=== PATIENT | male | born 1965 | race Caucasian/White ===

== ENCOUNTER 2018-08-10 10:17 | Outpatient (CLI) | payer MEDICARE | END 2018-08-10 23:59 | disposition home or self-care (01) | LOC: RAD 10:17 | PROVIDERS: ATTEND Psychiatry & Neurology Neurology | DX: G40.909 Epilepsy, unspecified, not intractable, without status epilepticus (principal); G45.0 Vertebro-basilar artery syndrome | CPT/HCPCS: 70551; 95816 ==

== ENCOUNTER 2018-10-11 12:51 | Emergency (ER) | payer MEDICARE ==
[~2018-10-11] VITALS: Ht 182.9 cm; Wt 90.9 kg
[2018-10-11 13:09] VITALS: BP 166/112
[2018-10-11] MEDS ORDERED: HYDR-4353 PO (14:10)
[2018-10-11] MEDS ORDERED: morphine 4 MG/ML inj SYRINge IM ONE (14:10)
[2018-10-11] MEDS ORDERED: ondansetron 4mg rapidly disintigrating tab PO ONE (14:10)
== END 2018-10-11 17:52 | disposition home or self-care (01) ==
LOC: ER 12:52
DX: S42.252A Displaced fracture of greater tuberosity of left humerus, initial encounter for closed fracture (principal); Z98.890 Other specified postprocedural states; W18.49XA Other slipping, tripping and stumbling without falling, initial encounter; Y93.89 Activity, other specified; Y92.89 Other specified places as the place of occurrence of the external cause; Y99.9 Unspecified external cause status
CPT/HCPCS: 73030; 73080; 96372; 99283; J2270

== ENCOUNTER 2018-12-19 12:50 | Emergency (ER) | payer MEDICARE, MEDICAID ==
[~2018-12-19] VITALS: Ht 182.9 cm; Wt 81.0 kg
[2018-12-19 13:44] VITALS: BP 141/92
== END 2018-12-19 14:08 | disposition home or self-care (01) ==
LOC: ER 12:50
DX: G40.909 Epilepsy, unspecified, not intractable, without status epilepticus (principal); I10 Essential (primary) hypertension; F12.90 Cannabis use, unspecified, uncomplicated; Z98.890 Other specified postprocedural states
CPT/HCPCS: 99281

== ENCOUNTER 2018-12-23 11:30 | Outpatient (CLI) | payer MEDICARE, MEDICAID | END 2018-12-23 23:59 | disposition home or self-care (01) | LOC: RAD 11:30 | PROVIDERS: ATTEND Psychiatry & Neurology Neurology | DX: R56.9 Unspecified convulsions (principal) | CPT/HCPCS: 95816 ==

== ENCOUNTER 2019-01-02 17:16 | Inpatient (IN) | payer MEDICARE, MEDICAID | END 2019-01-05 09:33 | disposition left against medical advice (07) | LOC: ER 17:16 → ED HOLD 22:47 → PCU 3S 01-03 17:00 | DX: T42.8X1A Poisoning by antiparkinsonism drugs and other central muscle-tone depressants, accidental (unintentional), initial encounter (principal); G92 Toxic encephalopathy; G40.909 Epilepsy, unspecified, not intractable, without status epilepticus ==

== ENCOUNTER 2020-04-30 14:51 | Emergency (ER) | payer MEDICAID, MEDICARE ==
[~2020-04-30] VITALS: Ht 182.9 cm; Wt 95.0 kg
[~2020-04-30 14:51] MED LIST: BACL20TA7 PO; CARB200T40 PO; DIAZ5TAB PO; LEVE750T PO; OMEP-50 PO; ROPI1TAB6 PO
[2020-04-30] MEDS ORDERED: diazepam 5mg tablet PO ONE ×2 (15:05→16:55)
[2020-04-30 15:27] LABS: CLARITY,URINE CLEAR (Clear); COLOR,URINE STRAW (Yellow); GLUCOSE, URINE NEGATIVE (Neg); KETONES,URINE NEGATIVE (Neg); LEUKOCYTE ESTERASE ,URINE NEGATIVE (Neg); NITRITES, URINE NEGATIVE (Neg); OCCULT BLOOD,URINE LARGE (Neg); PH,URINE 6.5 (4.8-8.0); PROTEIN,URINE NEGATIVE (Neg)
[2020-04-30 15:28] LABS: UA COLLECTION TYPE VOIDED
[2020-04-30 15:33] LABS: MUCUS STRANDS FEW /LPF (Neg); SQUAMOUS EPITHELIAL CELL,UR FEW /LPF (FEW); TRANSITIONAL EPI CELLS,URINE FEW /HPF
[2020-04-30 15:35] LABS: BACTERIA,URINE NONE SEEN /HPF (Neg); RBC,URINE 50-100 /HPF (0-2); WBC,URINE 0-4 /HPF (0-4)
[2020-04-30 15:38] LABS: URINE AMPHETAMINE SCREEN NEGATIVE (Neg); URINE BARBITUATE SCREEN NEGATIVE (Neg); URINE BENZODIAZEPINES SCREEN POSITIVE (Neg); URINE CANNABINOID SCREEN POSITIVE (Neg); URINE COCAINE SCREEN NEGATIVE (Neg); URINE METHADONE SCREEN NEGATIVE (Neg); URINE OPIATE SCREEN NEGATIVE (Neg); URINE PHENCYCLIDINE SCREEN NEGATIVE (Neg)
[2020-04-30] MEDS ORDERED: LISI-642 PO (15:43)
[2020-04-30] MEDS ORDERED: FLUTICASONE PRO NAS (15:43)
[2020-04-30] MEDS ORDERED: VAL5T PO (15:43)
--- NOTE | 2020-04-30 16:10 | NUR ---
Patient states he is feeling suicidal and has felt suicidal for a long time. Patient states he lost his support and great friend who was his mom May 2019.
--- NOTE | 2020-04-30 16:15 | NUR ---
Patient states he no longer has a neurologist but has large bottles of Kepra and he breaks a pill in half and takes it when he feels he needs to. Patient does not know the dose and patient has not had it prescribed in a long time but still has a lot of the medication. Patient states his last seizure was 3 weeks ago.
--- NOTE | 2020-04-30 16:20 | NUR ---
RN received a call from [facility] female staff who wanted to give RN the back story of the patient. [facility] stated that patient was in [facility] last week and got agitated and threatened to shoot the entire staff. [facility] also stated he threatened the Staff at [facility] with the same threat. RN spoke with [facility] It Audit Manager Calista about reporting a [place] [employer]. Calista stated that the threat had to be more specific and the staff at [facility] and [facility] were aware since the made the threat to them.
[2020-04-30 16:24] LABS: BASOPHILS # (AUTO) 0.1 X10'3 (0-0.2); BASOPHILS % (AUTO) 0.7 % (0-1); EOSINOPHILS # (AUTO) 0.1 X10'3 (0-0.9); EOSINOPHILS % (AUTO) 0.8 % (0-6); HEMOGLOBIN 13.6 g/dl (14.0-17.9); LYMPHOCYTES # (AUTO) 1.6 X10'3 (1.1-4.8); LYMPHOCYTES % (AUTO) 17.1 % (21-51); MEAN CORPUSCULAR HEMOGLOBIN 32.6 PG (27.0-31.0); MEAN CORPUSCULAR HGB CONC 34.1 g/dL (33.0-36.5); MEAN CORPUSCULAR VOLUME 95.7 FL (78-98); MEAN PLATELET VOLUME 7.7 FL (7.4-10.4); MONOCYTES # (AUTO) 0.6 X10'3 (0-0.9); MONOCYTES % (AUTO) 6.2 % (2-12); NEUTROPHILS # (AUTO) 7.2 X10'3 (1.8-7.7); NEUTROPHILS % (AUTO) 75.2 % (42-75); PLATELET COUNT 251 X10'3 (140-440); RED BLOOD COUNT 4.18 X10'6 (4.70-6.10); RED CELL DISTRIBUTION WIDTH 14.6 % (11.5-14.5); WHITE BLOOD COUNT 9.6 X10'3 (4.5-11.0)
[2020-04-30 16:35] LABS: ALANINE AMINOTRANSFERASE 19 U/L (12-78); ALBUMIN 3.6 G/DL (3.4-5.0); ALBUMIN/GLOBULIN RATIO 1.1 (1.1-1.5); ALKALINE PHOSPHATASE 161 IU/L (46-116); ANION GAP 2 (8-16); ASPARTATE AMINO TRANSFERASE 18 U/L (10-37); BILIRUBIN,TOTAL 0.7 MG/DL (0.1-1.0); BLOOD UREA NITROGEN 9 MG/DL (7-18); CALCIUM 8.2 MG/DL (8.5-10.1); CHLORIDE 107 MMOL/L (99-107); CREATININE 1.29 MG/DL (0.60-1.10); GLUCOSE 102 MG/DL (70-104); POTASSIUM 3.2 MMOL/L (3.5-5.1); SODIUM 142 MMOL/L (135-145); TOTAL CARBON DIOXIDE 32.8 MMOL/L (24-32); TOTAL PROTEIN 6.8 G/DL (6.4-8.2); eGFR 58 ML/MIN
[2020-04-30 16:46] LABS: ETHANOL < 0.010 GM/DL (0.0-0.010)
--- NOTE | 2020-04-30 17:00 | NUR ---
FAXED PACKET TO [facility]
[2020-04-30] MEDS ORDERED: FLUT16SP18 BOTHNARES (17:17)
--- NOTE | 2020-04-30 17:25 | NUR ---
1634 Patient got upset when he found out his belongings were being inventoried without him watching. Tech explained she would have him sign it when she was done. Patient calmed down but got very upset when DERIK Ziegler told patient that he could have someone cigar packer and picker his marijuana or we would have to destroy it. Patient went into a rage. Patient was given a phone but was so angry he could not work it. Security was called as patient was calling staff "brian galeas". 1649 NELIDA Valera came to speak to patient and calmed him down. Patient was given 5 mg x 2. But was still insulting staff. Patient did make a coment about "making this place a [place]." Patient sitting in bed, calm at the moment. Continue to monitor.
--- NOTE | 2020-04-30 18:46 | NUR ---
Report taken from DERIK Perez. This job specification writer observed the patient yelling an DERIK Perez and female tech also. Patient threatens to throw the phone. He calls the female staff "[place]!" The patient had an outside caller, her name is Yolanda Terriedeneen. Yolanda is a retired RN. Patient spoke with Yolanda on the phone until contact was lost. With patients permission this job specification writer called Yolanda back at [phone]. With patients permission his basic status was shared with Yolanda. Ms Duff advises that patients friend Percy will be getting off work at 1900 hours to pick his cell phone up from security. With patients permission security personnel will also give patients marijuana to patients antonio Greer. This is in lieu of security having to destroy the marijuana contriband. Patient agrees to this. The patient begins to calm somewhat. This job specification writer is working on a med reconciliation with patients assistance. Patient is being closely observed for patient and staff safety.
--- NOTE | 2020-04-30 18:59 | NUR ---
Patients significant other is here, his name is Percy. Per the patient he would like all of his belongings, including his computer, wallet, etc to go to Percy's possetion. Percy Pb's phone number is [phone].
--- NOTE | 2020-04-30 19:04 | NUR ---
MILVIA arredondo is reviewing patients inventory with patient. Percy is taking possetion of of patients property. Anand from security observed inventory transaction. Patient did sign the inventory list.
--- NOTE | 2020-04-30 19:06 | NUR ---
Patient did make one threatening statement to this nurse concerning the day staff. Patient stated "If I was going to , I was going to take them out with me." The patient has calmed since making that statement. His friend Percy visited for a short time, that visit was calm and beneficial. Patient has been given warm blankets, he is resting quietly in a mid fowlers position. Patient is in direct view from the nursing station. Patients med rec had been completed by the day shift RN Ana.
--- NOTE | 2020-04-30 19:12 | NUR ---
Yolanda Duff, patients friend. [phone] Aok to give updates on his condition to her. Verbal consent from the patient.
--- NOTE | 2020-04-30 20:29 | NUR ---
Patient has calmed. He is cooperative and resting. In view from nursing station.
[2020-04-30] MEDS: ROPINIRole 1mg tablet PO SCH (20:46)
[2020-04-30] MEDS: diazepam 5mg tablet PO SCH (20:48)
--- NOTE | 2020-04-30 21:10 | NUR ---
Patient is sleeping on his right side. No distress. In view from the nursing station.
--- NOTE | 2020-04-30 22:33 | NUR ---
Patient is sleeping on his right side. He has self repositioned.
--- NOTE | 2020-05-01 00:27 | NUR ---
Patient is sleeping on his left side. No distress.
--- NOTE | 2020-05-01 02:00 | NUR ---
Patient sleeping on his left side.
--- NOTE | 2020-05-01 05:53 | NUR ---
This patient is sleeping on his right side.
--- NOTE | 2020-05-01 06:52 | NUR ---
sleeping quietly in bed, no s/sx of distress.
[2020-05-01] MEDS ORDERED: lisinopril 5mg tablet PO SCH (08:00)
[2020-05-01] MEDS ORDERED: fluticasone nasal spray 16GM bottle NS SCH (08:00)
--- NOTE | 2020-05-01 08:07 | NUR ---
pt awoke and up to the bathroom. now sitting up in bed calmly eating breakfast. Addendum: 05/01/20 at 0845 by LYN pt states he doesn't need to take his meds.
--- NOTE | 2020-05-01 08:43 | NUR ---
[facility] at bedside talking to pt. pt speaking harshly and rude to MH rep. speaking in a condisending tone.
--- NOTE | 2020-05-01 09:43 | NUR ---
resting quietly in bed.
[2020-05-01] MEDS: diazepam 5mg tablet PO SCH ×2 (10:28→14:30)
[2020-05-01] MEDS ORDERED: diphenhydrAMINE 50 mg/ml inj IM ONE (10:40)
[2020-05-01] MEDS ORDERED: LORazepam 2 mg/ml vial IM ONE (10:40)
[2020-05-01] MEDS ORDERED: haloperidol lactate 5mg/ml inj IM ONE ×2 (10:40→19:15)
--- NOTE | 2020-05-01 10:46 | NUR ---
PATIENT THREW HIS GLASSES AND BROKE THEM
--- NOTE | 2020-05-01 11:16 | NUR ---
asked pt again if he would like to take his AM meds, he said he would. checked his BP before giving his Lisinopril. pt watching tech talk to another RN and then became beligerant towards tech accusing her of gossiping and talking bad about another pt when she wasn't and replaying events of yesterday. pt angry and accusatory, yelling, and calling tech names. security at bedside. MD gomez and B52 ordered and given. pt continuing to call staff names, remains sitting in bed. states he wants to telling the security guards to "go ahead and kill me, i don't care...go ahead and choke me". pt took off his shirt stating he was hot. staff told pt he needs to waer a shirt or a gown. pt remained angry and cussing at staff. pt now sitting quietly in bed.
--- NOTE | 2020-05-01 12:40 | NUR ---
pt changed his bed sheets because he urinated on them, now wearing a gown. pt has been calm and quiet sitting/laying in bed since his B52. Now slowly pacing in his room. appears to be much more calm.
--- NOTE | 2020-05-01 14:00 | NUR ---
pt has been calm throughout the afternoon. nursing staff chatted with pt about his life. sounds like pt has had a lot of pain and stress in his life causing his current mental state. pt states he just wants to feel better. pt appears to be in alot better mental state than he was earlier. he is alert, oriented, and calm, having a meaningful conversation. pt apologized for his actions earlier stating he just has a lot of pain he needs to work through.
[2020-05-01] MEDS: ROPINIRole 1mg tablet PO SCH (15:17)
--- NOTE | 2020-05-01 15:21 | NUR ---
pt c/o restless leg syndrome requesting to take his Requip early. ok with taking med early. Med administered. pt calm and cooperative. resting in bed and then up and walking d/t restless legs.
--- NOTE | 2020-05-01 16:40 | NUR ---
pt has been calm for the past several hours and pleasant. internet security specialist and RN having a calm conversation and pt interjected into conversation and accused internet security specialist of not knowing what he was talking about and pt got agitated. pt up and walking around the unit stating restlessness and agitation. stating he wants to smash something. asking when he can leave and what his plan of care is. asks RN what would happen if he poured water on the computers and smashed things. RN stated he would get arrested. pt said "that's fine. this place is [facility] anyway". pt states he smashes stuff at home when he's restless and "it would be real fun to smash stuff here". RN educated pt on the repercusions of his potential actions, pt doesn't care. a couple minutes later pt walks to his bed, sits and chats with staff about his life and then lays down to rest. security stated he was watching the camera to monitor pts actions incase of need for intervention.
--- NOTE | 2020-05-01 17:00 | NUR ---
called [facility] office to get update on pts plan of care and they said he was accepted to [facility]. called [facility] and they stated they would come get pt at shift change. pt anxious and agitated stating he wants to warehouse order picker something and smash it. security rounding in overflow as backup if needed. pt aware he will go to [facility] soon, states his frustration but is willing to wait. went back to bed and sat down.
[2020-05-01 18:31] VITALS: BP 163/90
[2020-05-01] MEDS ORDERED: diphenhydrAMINE 25mg capsule PO ONE (19:15)
[2020-05-01] MEDS ORDERED: LORazepam 1 MG tablet PO ONE (19:15)
--- NOTE | 2020-05-01 19:20 | NUR ---
CHARGE NURSE FROM [facility] MAGDY TP CPME AND TALK TO THE PATIENTABOUT WHY HE ISNT UP STAIRS AT THE MOMENT . SPOKE WITH DR PRIETO ABOUT PT HOSTILE BEHVAIOT THREATS TO HARM STAFF AND LEAVE OVER FLOW UNIT . ORDER GIVEN TO MEDICATE PATIENT.
--- NOTE | 2020-05-01 19:26 | NUR ---
PT MEDICATED WITH 10 MG HALDOL IM 2 MG OF ATIVAN PO AND 50 MG OF BENADRYL PO . PT WILLING TOOK THE PO MEDICATION AND IM INJECTION BUT VERBALLY ATTACKED ALL NURSING STAFF , SECURITY , ADN TECHS
--- NOTE | 2020-05-01 19:40 | NUR ---
Pt gets up and out of bed to bathroom . VERBALLY SCARCASTIC AND HOSTILE WHEN SPOKEN TO . PT WHEN FINISHED USING THE BR WALKED BACK TO THE BEDSIDE LOOKED AROUND A PROCEEDED TO PULL THE CURTAIN OFF THE TRACK , SECURITY WAS CALLED, THE PATIENT THEN PUSHED THE ASSISTANT STORE LEADER WHEN HE TRIED REDIRECTED DROM DEFACING PROPERTY , PT WAS YELLING AND VERBALLY ABSUIVE TO BOTH THE TECH , SECURITY , AND THIS RECORDER. PT THREATENED TO TRY AND LEAVE IF HE ISNT BROUGHT UPSTAIRS , PT WAS ABLE TO GET HIMSELF BACK TO HIS BED BUT IS SITTING UPRIGHT WITH A BLANK STARE.
[2020-05-04] MEDS ORDERED: LURA20TA PO (11:22)
[2020-05-04] MEDS ORDERED: TRAZ-251 PO (11:22)
== END 2020-05-01 22:50 ==
LOC: ER 14:51
DX: F32.9 Major depressive disorder, single episode, unspecified (principal); R45.851 Suicidal ideations; R45.1 Restlessness and agitation; I10 Essential (primary) hypertension; F41.9 Anxiety disorder, unspecified; F12.90 Cannabis use, unspecified, uncomplicated; Z86.69 Personal history of other diseases of the nervous system and sense organs; Z79.899 Other long term (current) drug therapy
CPT/HCPCS: 96372; 99285; J1200; J1630; J2060; Q0163; 36415; 80053; 80305; 80320; 81001; 84443; 85025

== ENCOUNTER 2020-06-29 17:54 | Observation (INO) | payer MEDICARE ==
[~2020-06-29] VITALS: Ht 182.9 cm; Wt 95.0 kg
[~2020-06-29 17:54] MED LIST changes: -BACL20TA7 PO; -CARB200T40 PO; -DIAZ5TAB PO; +FLUT16SP28 BOTHNARES; -LEVE750T PO; +LISI-642 PO; +LURA20TA PO; -OMEP-50 PO; +TRAZ-251 PO; +VAL5T PO
--- NOTE | 2020-06-29 19:28 | NUR ---
pt going out to CT
[2020-06-29 19:40] LABS: BASOPHILS # (AUTO) 0.1 X10'3 (0-0.2); BASOPHILS % (AUTO) 1.1 % (0-1); EOSINOPHILS # (AUTO) 0.1 X10'3 (0-0.9); EOSINOPHILS % (AUTO) 1.3 % (0-6); HEMATOCRIT 41.1 % (42.0-52.0); LYMPHOCYTES # (AUTO) 1.9 X10'3 (1.1-4.8); LYMPHOCYTES % (AUTO) 21.3 % (21-51); MEAN CORPUSCULAR HEMOGLOBIN 32.1 PG (27.0-31.0); MEAN CORPUSCULAR HGB CONC 34.2 g/dL (33.0-36.5); MEAN CORPUSCULAR VOLUME 94.1 FL (78-98); MEAN PLATELET VOLUME 7.9 FL (7.4-10.4); MONOCYTES # (AUTO) 0.6 X10'3 (0-0.9); MONOCYTES % (AUTO) 6.3 % (2-12); NEUTROPHILS # (AUTO) 6.2 X10'3 (1.8-7.7); PLATELET COUNT 210 X10'3 (140-440); RED BLOOD COUNT 4.37 X10'6 (4.70-6.10); RED CELL DISTRIBUTION WIDTH 14.2 % (11.5-14.5); WHITE BLOOD COUNT 8.9 X10'3 (4.5-11.0)
--- NOTE | 2020-06-29 19:52 | NUR ---
BREAKING PRIMARY RN- WILL CONT TO MONITOR.
[2020-06-29 20:00] LABS: ALANINE AMINOTRANSFERASE 16 U/L (12-78); ALBUMIN 3.5 G/DL (3.4-5.0); ALBUMIN/GLOBULIN RATIO 1.1 (1.1-1.5); ALKALINE PHOSPHATASE 141 IU/L (46-116); ANION GAP 5 (8-16); ASPARTATE AMINO TRANSFERASE 17 U/L (10-37); BILIRUBIN,TOTAL 0.3 MG/DL (0.1-1.0); BLOOD UREA NITROGEN 13 MG/DL (7-18); BUN/CREATININE RATIO 11.3 (5.4-32.0); CALCIUM 8.2 MG/DL (8.5-10.1); CHLORIDE 104 MMOL/L (99-107); CREATININE 1.15 MG/DL (0.60-1.10); GLUCOSE 89 MG/DL (70-104); POTASSIUM 3.3 MMOL/L (3.5-5.1); SODIUM 142 MMOL/L (135-145); TOTAL CARBON DIOXIDE 32.9 MMOL/L (24-32); TOTAL PROTEIN 6.8 G/DL (6.4-8.2); eGFR 66 ML/MIN
[2020-06-29] MEDS ORDERED: cloNIDine 0.1 mg tablet PO ONE (20:05)
[2020-06-29 20:06] LABS: MAGNESIUM 1.8 MG/DL (1.5-2.4)
--- NOTE | 2020-06-29 20:52 | NUR ---
PA MADE AWARE OF BP
[2020-06-29] MEDS ORDERED: ondansetron/PF 4mg/2ml inj IV PRN (21:50)
[2020-06-29] MEDS: amLODIPine 5mg tablet PO SCH (22:17)
--- NOTE | 2020-06-29 22:42 | NUR ---
He is eating some food.
[2020-06-30] VITALS (8 sets, daily range): BP systolic 145–177; BP diastolic 97–114
[2020-06-30 02:33] LABS: ALBUMIN 3.1 G/DL (3.4-5.0); ANION GAP 5 (8-16); BLOOD UREA NITROGEN 14 MG/DL (7-18); BUN/CREATININE RATIO 12.5 (5.4-32.0); CALCIUM 7.9 MG/DL (8.5-10.1); CHLORIDE 106 MMOL/L (99-107); CREATININE 1.12 MG/DL (0.60-1.10); GLUCOSE 95 MG/DL (70-104); SODIUM 142 MMOL/L (135-145); TOTAL CARBON DIOXIDE 30.8 MMOL/L (24-32); eGFR 68 ML/MIN
[2020-06-30] MEDS ORDERED: magnesium Cl slow-release 64mg tablet PO PRN (02:45)
[2020-06-30] MEDS ORDERED: potassium Cl 20 mEq SR tablet PO PRN (02:45)
[2020-06-30] MEDS ORDERED: magnesium 4gm in 100ml NS 100 ML IV PRN (02:45)
[2020-06-30] MEDS ORDERED: potassium CL 10mEq/100ml bag 100 ML IV PRN (02:45)
[2020-06-30] MEDS: potassium Cl 20 mEq SR tablet PO PRN ×3 (02:55→17:15)
--- NOTE | 2020-06-30 06:30 | NUR ---
Patient in room ORTHO 4013. I have received report from Mayco MORE and had the opportunity to ask questions and assume patient care.
[2020-06-30 07:28] LABS: BASOPHILS # (AUTO) 0.1 X10'3 (0-0.2); BASOPHILS % (AUTO) 0.5 % (0-1); EOSINOPHILS # (AUTO) 0.1 X10'3 (0-0.9); EOSINOPHILS % (AUTO) 1.5 % (0-6); HEMATOCRIT 43.5 % (42.0-52.0); HEMOGLOBIN 14.8 g/dl (14.0-17.9); LYMPHOCYTES # (AUTO) 2.1 X10'3 (1.1-4.8); LYMPHOCYTES % (AUTO) 21.9 % (21-51); MEAN CORPUSCULAR HGB CONC 34.1 g/dL (33.0-36.5); MEAN PLATELET VOLUME 8.2 FL (7.4-10.4); MONOCYTES # (AUTO) 0.7 X10'3 (0-0.9); NEUTROPHILS # (AUTO) 6.6 X10'3 (1.8-7.7); NEUTROPHILS % (AUTO) 69.1 % (42-75); PLATELET COUNT 228 X10'3 (140-440); RED BLOOD COUNT 4.63 X10'6 (4.70-6.10); RED CELL DISTRIBUTION WIDTH 14.6 % (11.5-14.5); WHITE BLOOD COUNT 9.6 X10'3 (4.5-11.0)
[2020-06-30] MEDS: cloNIDine 0.1 mg tablet PO SCH ×2 (07:58→13:27)
[2020-06-30] MEDS: lurasidone 20mg tablet PO SCH (07:58)
[2020-06-30] MEDS: diazepam 5mg tablet PO SCH ×3 (07:58→20:30)
[2020-06-30] MEDS: fluticasone nasal spray 16GM bottle NS SCH (08:00)
[2020-06-30] MEDS: K and/or MAG REPLACEMENT MC SCH ×2 (08:00→20:00)
[2020-06-30] MEDS ORDERED: lisinopril 10 MG tablet PO SCH (08:00)
[2020-06-30] MEDS: amLODIPine 5mg tablet PO SCH (08:01)
[2020-06-30] MEDS ORDERED: HYDROchlorothiazide 25mg tablet PO ONE (09:00)
[2020-06-30] MEDS ORDERED: pneumococcal 23-VAL P-sac vacc 25 mcg/0.5ml vial IMVAC ONE (10:00)
[2020-06-30] MEDS: ROPINIRole 1mg tablet PO SCH (10:46)
[2020-06-30] MEDS ORDERED: NOR5T PO (11:47)
[2020-06-30] MEDS ORDERED: HCTZ25T PO (11:47)
[2020-06-30] MEDS ORDERED: hydrALAZINE 20mg/ml inj. IV ONE (15:00)
--- NOTE | 2020-06-30 16:51 | NUR ---
Paged Dr. Gutierrez about patient BP 173/98 right arm, 173/103 left arm, waiting for call back. Patient also just awoke from nap and had headache of 7/10 pain.
[2020-06-30] MEDS ORDERED: hydrALAZINE 20mg/ml inj. IV PRN (17:00)
[2020-06-30] MEDS: lisinopril 20mg tablet PO SCH (17:15)
[2020-06-30] MEDS: acetaminophen 325mg tablet PO PRN (17:16)
--- NOTE | 2020-06-30 18:24 | NUR ---
Problems reprioritized. Patient report given, questions answered & plan of care reviewed with Yvonne MORE.
--- NOTE | 2020-06-30 18:36 | NUR ---
Patient in room ORTHO 4013. I have received report from GT MORE and had the opportunity to ask questions and assume patient care.
[2020-06-30] MEDS ORDERED: ROPINIRole 1mg tablet PO SCH (21:00)
[2020-07-01 05:51] LABS: BASOPHILS # (AUTO) 0.1 X10'3 (0-0.2); BASOPHILS % (AUTO) 0.5 % (0-1); EOSINOPHILS # (AUTO) 0.1 X10'3 (0-0.9); EOSINOPHILS % (AUTO) 1.2 % (0-6); HEMOGLOBIN 15.4 g/dl (14.0-17.9); LYMPHOCYTES # (AUTO) 1.6 X10'3 (1.1-4.8); LYMPHOCYTES % (AUTO) 16.3 % (21-51); MEAN CORPUSCULAR HGB CONC 34.2 g/dL (33.0-36.5); MEAN CORPUSCULAR VOLUME 93.5 FL (78-98); MEAN PLATELET VOLUME 7.9 FL (7.4-10.4); MONOCYTES # (AUTO) 0.7 X10'3 (0-0.9); MONOCYTES % (AUTO) 7.4 % (2-12); NEUTROPHILS # (AUTO) 7.5 X10'3 (1.8-7.7); NEUTROPHILS % (AUTO) 74.6 % (42-75); PLATELET COUNT 242 X10'3 (140-440); RED BLOOD COUNT 4.81 X10'6 (4.70-6.10); RED CELL DISTRIBUTION WIDTH 14.3 % (11.5-14.5)
[2020-07-01 06:00] VITALS: BP_SYST 167; BP_SYST 178; BP_SYST 179; BP_SYST 195; BP_DIAS 109; BP_DIAS 110; BP_DIAS 124; BP_DIAS 129
[2020-07-01 06:07] LABS: ALBUMIN 3.5 G/DL (3.4-5.0); ANION GAP 5 (8-16); BLOOD UREA NITROGEN 12 MG/DL (7-18); BUN/CREATININE RATIO 10.5 (5.4-32.0); CALCIUM 8.6 MG/DL (8.5-10.1); CHLORIDE 103 MMOL/L (99-107); CREATININE 1.14 MG/DL (0.60-1.10); GLUCOSE 97 MG/DL (70-104); POTASSIUM 3.7 MMOL/L (3.5-5.1); SODIUM 140 MMOL/L (135-145); TOTAL CARBON DIOXIDE 32.5 MMOL/L (24-32); eGFR 66 ML/MIN
--- NOTE | 2020-07-01 06:37 | NUR ---
Problems reprioritized. Patient report given, questions answered & plan of care reviewed with Yamilet MORE.
[2020-07-01] MEDS ORDERED: HYDROchlorothiazide 25mg tablet PO SCH (08:00)
[2020-07-01] MEDS: fluticasone nasal spray 16GM bottle NS SCH (08:00)
[2020-07-01] MEDS: K and/or MAG REPLACEMENT MC SCH (08:00)
[2020-07-01] MEDS: acetaminophen 325mg tablet PO PRN (08:14)
[2020-07-01] MEDS: diazepam 5mg tablet PO SCH (08:14)
[2020-07-01] MEDS: ROPINIRole 1mg tablet PO SCH (08:15)
[2020-07-01] MEDS: lurasidone 20mg tablet PO SCH (08:15)
[2020-07-01] MEDS: lisinopril 20mg tablet PO SCH (08:16)
[2020-07-01] MEDS: amLODIPine 5mg tablet PO SCH (08:17)
[2020-07-01 09:30] VITALS: BP 167/104
--- NOTE | 2020-07-01 09:39 | NUR ---
PAGER ID: [phone] MESSAGE: [id number] GIMOHSEN PLEASE NOTE BLOOD PRESSURE IN VITALS SIGNS. ORTHOSTATICS TAKEN WELL. bp UNCONTROLLED. AM MEDS AND PRN HYDRALAZINE ALREADY GIVEN AND REASSSESSED- DBP>100 SBP>160 YANIV [id number]
[2020-07-01 10:09] VITALS: BP_SYST 140; BP_SYST 142; BP_DIAS 100; BP_DIAS 92
[2020-07-01] MEDS ORDERED: LISI-600 PO (10:18)
[2020-07-01 11:00] VITALS: BP 174/102
[2020-07-01 11:49] VITALS: BP 130/82
--- NOTE | 2020-07-01 11:53 | NUR ---
BP WNL. Discussed discharge paperwork with pt. Went over new medication extensively and pt. has good verbal feedback. Agrees to continue to monitor BP at home. Will follow up with PCP in a week. IV DC'd, pressure bandage applied. No s/sx bleeding noted[place] contacted [place] ride for transport. ETA 1 hour. Pt. is aware to call 911 or return to nearest ER if symptoms persist. Educated on normal BP values and when to be concerned. Educational written pamphlet provided concerning hypertension. Pt. will await transport. Medications returned to pt. from pharmacy and pt. knows not to take them inthe hospital. Pt. gathering belongings to take home in room at this time.
== END 2020-07-01 13:05 | disposition home or self-care (01) ==
LOC: ER 17:56 → ED HOLD 21:49 → ORTHO 4S 06-30 02:15
PROVIDERS: ADMIT Internal Medicine; ATTEND Family Medicine
DX: I16.0 Hypertensive urgency (principal); I10 Essential (primary) hypertension; E87.6 Hypokalemia; G25.81 Restless legs syndrome; R51 Headache; I16.1 Hypertensive emergency; F41.9 Anxiety disorder, unspecified; Z23 Encounter for immunization; Z79.899 Other long term (current) drug therapy
CPT/HCPCS: 36415; 70450; 71045; 80048; 80053; 83735; 83880; 84132; 84484; 85025; 87081; 90732; 93005; 96374; 96376; 99285; G0009; G0378; J0360

== ENCOUNTER 2020-09-25 06:56 | Emergency (ER) | payer MEDICARE ==
[~2020-09-25] VITALS: Ht 182.9 cm; Wt 104.0 kg
[~2020-09-25 06:56] MED LIST changes: +HCTZ25T PO; -LISI-642 PO; +NOR5T PO; -TRAZ-251 PO
[2020-09-25] MEDS ORDERED: hydrALAZINE 20mg/ml inj. IV ONE (07:30)
[2020-09-25] MEDS ORDERED: hyDRALAzine 10mg tablet PO ONE (08:00)
--- NOTE | 2020-09-25 08:01 | NUR ---
Discussed med order w/ [facility] zen Castro to switch from iv to po.
[2020-09-25 08:29] LABS: BASOPHILS # (AUTO) 0.1 X10'3 (0-0.2); BASOPHILS % (AUTO) 0.6 % (0-1); EOSINOPHILS # (AUTO) 0.1 X10'3 (0-0.9); EOSINOPHILS % (AUTO) 1.4 % (0-6); HEMATOCRIT 44.1 % (42.0-52.0); LYMPHOCYTES # (AUTO) 1.6 X10'3 (1.1-4.8); LYMPHOCYTES % (AUTO) 17.7 % (21-51); MEAN CORPUSCULAR HEMOGLOBIN 32.4 PG (27.0-31.0); MEAN CORPUSCULAR HGB CONC 34.1 g/dL (33.0-36.5); MEAN CORPUSCULAR VOLUME 94.9 FL (78-98); MEAN PLATELET VOLUME 8.5 FL (7.4-10.4); MONOCYTES # (AUTO) 0.5 X10'3 (0-0.9); NEUTROPHILS # (AUTO) 6.7 X10'3 (1.8-7.7); NEUTROPHILS % (AUTO) 74.3 % (42-75); PLATELET COUNT 244 X10'3 (140-440); RED BLOOD COUNT 4.65 X10'6 (4.70-6.10); RED CELL DISTRIBUTION WIDTH 15.8 % (11.5-14.5)
[2020-09-25 08:51] LABS: ALANINE AMINOTRANSFERASE 21 U/L (12-78); ALBUMIN 3.7 G/DL (3.4-5.0); ALBUMIN/GLOBULIN RATIO 1.1 (1.1-1.5); ALKALINE PHOSPHATASE 136 IU/L (46-116); ANION GAP 11 (8-16); ASPARTATE AMINO TRANSFERASE 16 U/L (10-37); BILIRUBIN,TOTAL 0.4 MG/DL (0.1-1.0); BLOOD UREA NITROGEN 14 MG/DL (7-18); BUN/CREATININE RATIO 13.6 (5.4-32.0); CALCIUM 8.5 MG/DL (8.5-10.1); CHLORIDE 104 MMOL/L (99-107); CREATININE 1.03 MG/DL (0.60-1.10); GLUCOSE 98 MG/DL (70-104); POTASSIUM 4.2 MMOL/L (3.5-5.1); SODIUM 140 MMOL/L (135-145); TOTAL CARBON DIOXIDE 25.5 MMOL/L (24-32); TOTAL PROTEIN 7.1 G/DL (6.4-8.2); eGFR 74 ML/MIN
[2020-09-25] MEDS ORDERED: propranolol 10mg tablet PO ONE (09:40)
[2020-09-25] MEDS ORDERED: lisinopril 10 MG tablet PO ONE ×2 (09:40→09:45)
[2020-09-25] MEDS ORDERED: HYDROchlorothiazide 25mg tablet PO ONE (09:45)
[2020-09-25] MEDS ORDERED: amLODIPine 5mg tablet PO ONE (09:45)
[2020-09-25] MEDS ORDERED: LISI-600 PO (11:22)
[2020-09-25] MEDS ORDERED: HCTZ25T PO (11:22)
[2020-09-25] MEDS ORDERED: AMLO5TAB PO (11:22)
--- NOTE | 2020-09-25 12:03 | NUR ---
DR RICHTER AWARE OF DISCHARGE BLOOD PRESSURE
[2020-09-25 12:04] VITALS: BP 173/111
== END 2020-09-25 12:11 | disposition home or self-care (01) ==
LOC: ER 06:57
DX: I10 Essential (primary) hypertension (principal); F12.90 Cannabis use, unspecified, uncomplicated; Z86.69 Personal history of other diseases of the nervous system and sense organs; Z79.899 Other long term (current) drug therapy
CPT/HCPCS: 36415; 80053; 85025; 93005; 99285